=== PATIENT | male | born 1935 | race Caucasian/White ===

== ENCOUNTER 2016-07-31 20:15 | Emergency (ER) | payer OTHER ==
[2016-07-31 20:22] VITALS: BP 147/88; PULSE 97; TEMP 97.4; BMI 30.5
--- NOTE | 2016-07-31 20:36 | PDOC ---
History of Present Illness - General History Source: Patient Exam Limitations: No Limitations - History of Present Illness Initial Comments: 07/31/16 22:40 The patient is an 80 year old male with past medical history of IDDM (on insulin as well as prescription pills) who presents to the ED with elevated blood sugar levels. The patient states he ate grapes, coconut, and a Snapple which he normally doesnt do. He proceeded to check his blood sugar and noted it to be elevated. He also adds that he took his Levemir but missed his afternoon and evening dose of Metformin. He denies any change in vision. He denies any recent illness, fever, chills, nausea, vomiting, diarrhea, cough, shortness of breath, chest pain, or urinary symptoms. <Aby Parker - Last Filed: 07/31/16 22:40> <Deirdre Oreilly - Last Filed: 07/31/16 23:10> - General Chief Complaint: Blood Sugar Problem Stated Complaint: HIGH BLOOD SUGAR Time Seen by Provider: 07/31/16 20:36 Past History <Aby Parker - Last Filed: 07/31/16 22:40> - Past Medical History Anemia: No Asthma: No Cancer: No Cardiac Disorders: Yes (stents times 3) CVA: No COPD: No CHF: No Dementia: No Diabetes: Yes GI Disorders: No Disorders: No HTN: Yes Hypercholesterolemia: Yes Liver Disease: No Seizures: No Thyroid Disease: No - Surgical History Abdominal Surgery: Yes (Appendectomy) Appendectomy: Yes Cardiac Surgery: Yes (STENTS x 3) Cholecystectomy: No Lung Surgery: No Neurologic Surgery: No Orthopedic Surgery: No - Psycho/Social/Smoking Cessation Hx Anxiety: No Suicidal Ideation: No Smoking History: Never smoked Have you smoked in the past 12 months: No If you are a former smoker, when did you quit?: 48 YRS AGO Information on smoking cessation initiated: No Hx Alcohol Use: No Drug/Substance Use Hx: No Substance Use Type: None Hx Substance Use Treatment: No <Deirdre Oreilly - Last Filed: 07/31/16 23:10> - Past Medical History Allergies/Adverse Reactions: Allergies Allergy/AdvReac Type Severity Reaction Status Date / Time No Known Allergies Allergy Verified 01/03/16 08:00 Home Medications: Ambulatory Orders Amlodipine Besylate 5 mg PO DAILY 09/23/15 Aspirin [ASA -] 81 mg PO DAILY 09/23/15 Atorvastatin Ca [Lipitor] 40 mg PO DAILY 09/23/15 Cholecalciferol (Vitamin D3) [Vitamin D3] 1,000 unit PO DAILY 09/23/15 Fexofenadine HCl 60 mg PO DAILY 09/23/15 Furosemide [Lasix -] 40 mg PO DAILY 09/23/15 Glipizide [Glipizide Xl] 2.5 mg PO DAILY 09/23/15 Losartan Potassium 100 mg PO DAILY 09/23/15 Metoprolol Succinate [Toprol Xl] 150 mg PO DAILY 09/23/15 Multivitamin [Poly-Vitamin] 1 each PO DAILY 09/23/15 Ranitidine HCl [Zantac] 150 mg PO BID 09/23/15 Tamsulosin HCl [Flomax -] 0.4 mg PO DAILY 09/23/15 Hydroxyzine HCl [Atarax -] 25 mg PO HS 10/03/15 Nortriptyline HCl [Pamelor -] 25 mg PO HS #30 capsule 10/05/15 Tadalafil [Cialis] 5 mg PO DAILY PRN #0 10/05/15 Tramadol HCl 50 mg PO TID PRN #30 tablet MDD 3 10/05/15 Acetaminophen 650 mg PO PRN 01/03/16 Amlodipine Besylate 5 mg PO DAILY 01/03/16 Glucophage 850 mg PO DAILY 01/03/16 Lantus (10mL VIAL) - 10 units SQ DAILY 01/03/16 Lasix - 20 mg PO DAILY 01/03/16 Lipitor 40 mg PO DAILY 01/03/16 Mirtazapine 15 mg PO DAILY 01/03/16 Review of Systems - Review of Systems Able to Perform ROS?: Yes Comments:: 07/31/16 22:45 CONSTITUTIONAL: Absent: fever, chills, diaphoresis, generalized weakness, malaise, loss of appetite HEENT: Absent: rhinorrhea, nasal congestion, throat pain, throat swelling, difficulty swallowing, mouth swelling, ear pain, eye pain, visual Changes CARDIOVASCULAR: Absent: chest pain, syncope, palpitations, irregular heart rate, lightheadedness , peripheral edema RESPIRATORY: Absent: cough, shortness of breath, dyspnea with exertion, orthopnea, wheezing, stridor, hemoptysis GASTROINTESTINAL: Absent: abdominal pain, abdominal distension, nausea, vomiting, diarrhea, constipation, melena, hematochezia GENITOURINARY: Absent: dysuria, frequency, urgency, hesitancy, hematuria, flank pain, genital pain MUSCULOSKELETAL: Absent: myalgia, arthralgia, joint swelling SKIN: Absent: rash, itching, pallor HEMATOLOGIC/IMMUNOLOGIC: Absent: easy bleeding, easy bruising, lymphadenopathy, frequent infections ENDOCRINE: Absent: unexplained weight gain, unexplained weight loss, heat intolerance, cold intolerance NEUROLOGIC: Absent: headache, focal weakness or paresthesias, dizziness, unsteady gait, seizure, mental status changes, bladder or bowel incontinence PSYCHIATRIC: Absent: anxiety, depression, suicidal or homicidal ideation, hallucinations. All Other Systems: Reviewed and Negative <Aby Parker - Last Filed: 07/31/16 22:40> *Physical Exam - Vital Signs Last Vital Signs Temp Pulse Resp BP Pulse Ox 97.4 F L 97 H 18 147/88 100 07/31/16 20:20 07/31/16 20:20 07/31/16 20:20 07/31/16 20:20 07/31/16 20:20 - Physical Exam Comments: 07/31/16 22:49 GENERAL: Well developed, well nourished. Awake and alert. No acute distress. HEENT: Normocephalic, atraumatic. PERRLA, EOMI. No conjunctival pallor. Sclera are non- icteric. Moist mucous membranes. Oropharynx is clear. NECK: Supple. Full ROM. No JVD. Carotid pulses 2+ and symmetric, without bruits. No thyromegaly. No lymphadenopathy. CARDIOVASCULAR: Regular rate and rhythm. No murmurs, rubs, or gallops. Distal pulses are 2+ and symmetric. PULMONARY: No evidence of respiratory distress. Lungs clear to auscultation bilaterally. No wheezing, rales or rhonchi. ABDOMINAL: Soft. Non-tender. Non-distended. No rebound or guarding. No organomegaly. Normoactive bowel sounds. MUSCULOSKELETAL Normal range of motion at all joints. No bony deformities or tenderness. No CVA tenderness. EXTREMITIES: No cyanosis. No clubbing. No edema. No calf tenderness. SKIN: Warm and dry. Normal capillary refill. No rashes. No jaundice. NEUROLOGICAL: Alert, awake, appropriate. Cranial nerves 2-12 intact. No deficits to light touch and temperature in face, upper extremities and lower extremities. No motor deficits in the in face, upper extremities and lower extremities. Normoreflexic in the upper and lower extremities. Normal speech. Toes are down-going bilaterally. Gait is normal without ataxia. PSYCHIATRIC: Cooperative. Good eye contact. Appropriate mood and affect. <Aby Parker - Last Filed: 07/31/16 22:40> - Vital Signs Last Vital Signs Temp Pulse Resp BP Pulse Ox 97.4 F L 97 H 18 147/88 100 07/31/16 20:20 07/31/16 20:20 07/31/16 20:20 07/31/16 20:20 07/31/16 20:20 <Deirdre Oreilly - Last Filed: 07/31/16 23:10> ED Treatment Course - LABORATORY CBC & Chemistry Diagram: 07/31/16 20:39 07/31/16 20:39 - ADDITIONAL ORDERS Additional order review: Laboratory Results 07/31/16 20:39 Sodium 130 L Potassium 4.3 Chloride 89 L D Carbon Dioxide 32 Anion Gap 9 BUN 29 H D Creatinine 1.5 H D Creat Clearance w eGFR 44.92 Random Glucose 574 H* D Calcium 9.0 Total Bilirubin 0.5 AST 10 L D ALT 27 D Alkaline Phosphatase 137 H D Total Protein 7.8 Albumin 3.9 Acetone, Qual Negative 07/31/16 20:39 RBC 4.91 MCV 85.0 MCHC 32.5 RDW 13.9 MPV 9.0 D Neutrophils % 55.2 Lymphocytes % 28.6 Monocytes % 14.5 H Eosinophils % 1.4 Basophils % 0.3 - Medications Given in the ED: ED Medications Discontinued Medications Generic Name Dose Route Start Last Admin Trade Name Freq PRN Reason Stop Dose Admin Metformin HCl 850 mg 07/31/16 22:12 07/31/16 22:22 Glucophage - PO 07/31/16 22:13 850 mg ONCE ONE Administration <Aby aPrker - Last Filed: 07/31/16 22:40> - LABORATORY CBC & Chemistry Diagram: 07/31/16 20:39 07/31/16 20:39 <Deirdre Oreilly - Last Filed: 07/31/16 23:10> Medical Decision Making - Medical Decision Making 07/31/16 23:05 repeat rur=[id number] acetone negative pt discharged home IMP hyperglycemia <Deirdre Oreilly - Last Filed: 07/31/16 23:10> *DC/Admit/Observation/Transfer - Attestations Scribe Attestion: 07/31/16 22:50 Documentation prepared by Aby Parker, acting as auditor medical claims for Deirdre Oreilly MD. <Aby Parker - Last Filed: 07/31/16 22:40> <Deirdre Oreilly - Last Filed: 07/31/16 23:10> Diagnosis at time of Disposition: Diabetes mellitus Qualifiers: Diabetes mellitus type: type 1 Diabetes mellitus complication status: with hyperglycemia Qualified Code(s): E10.65 - Type 1 diabetes mellitus with hyperglycemia - Discharge Dispostion Disposition: HOME Condition at time of disposition: Stable - Referrals Referrals: Shraddha Merritt MD [Primary Care Provider] - - Patient Instructions Additional Instructions: please take your diabetes medication and directed ed by your regular physician followup with your doctor this week
[2016-07-31 20:59] LABS: BASOPHIL 0.3 % (0-2.0); EOSINOPHIL 1.4 % (0-4.5); MCH 27.6 pg (25.7-33.7); MCHC 32.5 g/dl (32.0-35.9); NEUTROPHILS 55.2 % (42.8-82.8); PLATELET COUNT 226 K/MM3 (134-434); RDW 13.9 % (11.9-15.9); WHITE BLOOD COUNT 7.7 K/mm3 (4.0-10.0)
[2016-07-31 21:19] LABS: ACETONE SERUM NEGATIVE (NEGATIVE)
[2016-07-31 21:30] LABS: ALBUMIN 3.9 g/dl (3.4-5.0); ALK PHOS 137 U/L (45-117); ANION GAP 9 (8-16); BILIRUBIN,TOTAL 0.5 mg/dL (0.2-1.0); CO2 32 mmol/L (21-32); CREATININE 1.5 mg/dL (0.7-1.3); SGOT/AST 10 U/L (15-37); SGPT/ALT 27 U/L (12-78); TOT PROT 7.8 g/dl (6.4-8.2)
[2016-07-31 22:01] LABS: GLUCOSE,RANDOM 574 mg/dL (74-106)
[2016-07-31] MEDS ORDERED: SODIUM CHLORIDE 500 ML IV STA (22:14)
== END 2016-07-31 23:15 | disposition home or self-care (01) ==
LOC: JER 20:15
PROC: 3E0337Z Introduction of Electrolytic and Water Balance Substance into Peripheral Vein, Percutaneous Approach (ICD-10-PCS; principal; 2016-07-31)
DX: E10.65 Type 1 diabetes mellitus with hyperglycemia (principal); I10 Essential (primary) hypertension; E78.00 Pure hypercholesterolemia, unspecified; Z95.5 Presence of coronary angioplasty implant and graft; Z87.891 Personal history of nicotine dependence; Z79.82 Long term (current) use of aspirin
CPT/HCPCS: 36415; 80053; 82009; 85025; 96360; 99282-25